=== PATIENT | male | born 1960 | race Hispanic/Latino ===

== ENCOUNTER 2019-06-27 12:06 | Inpatient (IN) | payer SELFPAY ==
[~2019-06-27] VITALS: Ht 154.9 cm; Wt 73.6 kg
[2019-06-27] MEDS ORDERED: CLONIDINE HCL 0.1 MG TAB PO ONE (12:30)
[2019-06-27] MEDS ORDERED: MULTIVITAMINS- 12 INJECTION 10 ML, FOLIC ACID MDV 5 MG, THIAMINE HCL INJ 100 MG in SODI... IV ONE (12:30)
[2019-06-27] MEDS ORDERED: LORAZEPAM INJ 2 MG/ML VIAL IV ONE (12:30)
[2019-06-27 12:31] LABS: BASOPHILS # (AUTO) 0.1 (0.0-0.1); BASOPHILS % 0.7 % (0.0-1.0); EOSINOPHILS # (AUTO) 0.1 (0.0-0.4); EOSINOPHILS % 1.3 % (0.0-6.0); HEMATOCRIT 44.4 % (38.2-49.6); HEMOGLOBIN 15.4 g/dL (14.0-18.0); LYMPHOCYTES # (AUTO) 2.8 (1.0-3.2); LYMPHOCYTES % 28.2 % (18.0-39.1); MEAN CORPUSCULAR HEMOGLOBIN 33.4 pg (28-32); MEAN CORPUSCULAR HGB CONC 34.7 g/dL (31-35); MEAN CORPUSCULAR VOLUME 96.3 fL (81-99); MONOCYTES % 10.5 % (4.4-11.3); NEUTROPHILS # (AUTO) 5.8 (2.1-6.9); PLATELET COUNT 240 x10e3/uL (140-360); RED BLOOD COUNT 4.61 x10e6/uL (4.3-5.7); RED CELL DISTRIBUTION WIDTH 12.5 % (11.7-14.4)
[2019-06-27 12:47] LABS: INR 0.89; PROTHROMBIN TIME 12.5 seconds (11.9-14.5)
[2019-06-27 12:48] LABS: PARTIAL THROMBOPLASTIN TIME 31.3 seconds (23.8-35.5)
[2019-06-27 12:51] LABS: CLARITY,URINE HAZY (CLEAR); COLOR,URINE YELLOW (YELLOW)
[2019-06-27 12:52] LABS: BILIRUBIN,URINE NEGATIVE (NEGATIVE); KETONES,URINE NEGATIVE (NEGATIVE); LEUKOCYTE ESTERASE ,URINE SMALL (NEGATIVE); NITRITE,URINE NEGATIVE (NEGATIVE); PROTEIN,URINE DIPSTICK NEGATIVE (NEGATIVE); URINE UROBILINOGEN 0.2 mg/dL (0.2 - 1)
[2019-06-27 12:54] LABS: ALANINE AMINOTRANSFERASE 67 IU/L (0-55); ALBUMIN/GLOBULIN RATIO 0.9 (0.8-2.0); ALKALINE PHOSPHATASE 105 IU/L (40-150); ANION GAP 14.1 mmol/L (8-16); BLOOD UREA NITROGEN 8 mg/dL (7-26); BUN/CREATININE RATIO 11 (6-25); CALCIUM 9.5 mg/dL (8.4-10.2); CARBON DIOXIDE 26 mmol/L (22-29); CHLORIDE 96 mmol/L (98-107); CREATINE KINASE 76 IU/L (30-200); CREATININE, SERUM 0.76 mg/dL (0.72-1.25); EST GLOMERULAR FILTRATION RATE > 60 ML/MIN (60-); GLUCOSE 110 mg/dL (74-118); MAGNESIUM 2.2 MG/DL (1.3-2.1); POTASSIUM 5.1 mmol/L (3.5-5.1); SODIUM 131 mmol/L (136-145)
[2019-06-27 13:13] LABS: THYROID STIMULATING HORMONE 1.422 uIU/mL (0.350-4.940)
[2019-06-27 13:14] LABS: EPITHELIAL CELLS,URINE FEW /LPF
--- NOTE | 2019-06-27 13:28 | Diagnostic Imaging Report ---
Chest, single frontal view line History: CVA Comparison: No comparisons available for review IMPRESSION: The cardiomediastinal silhouette and pulmonary vasculature are within normal limits. The lungs are clear without evidence of consolidation or effusion. There are no acute osseous abnormalities. Signed by: Schuyler Beltrán MD on 06/27/2019 1:25 PM
--- NOTE | 2019-06-27 13:45 | Diagnostic Imaging Report ---
EXAMINATION: Head CT HISTORY: Left peripheral vision loss for the last 2 days, hypertension COMPARISON: None. TECHNIQUE: Multidetector axial images were obtained without contrast from the foramen magnum to the vertex . The images were reconstructed using brain and bone algorithms. Thin section brain images were reformatted into coronal and sagittal planes. Image quality: Motion/streaking artifact limits the evaluation of the skull base and posterior cranial fossa. Dose modulation, iterative reconstruction, and/or weight based adjustment of the mA/kV was utilized to reduce the radiation dose to as low as reasonably achievable. FINDINGS: Parenchyma: 1. Hypodensity in the right medial occipital lobe (lingual gyrus) involving mostly the white matter, with minimal local mass effect and sulci effacement, no definite midline shift or hemorrhagic component. This may represent an acute infarction along the right FORGING DIE SINKER distribution, however given the predominantly white matter involvement an underlying lesion cannot be excluded. 2. No mass or hemorrhage. No CT evidence of acute territorial vascular insult. Extra-axial spaces:No abnormal density. No extra-axial fluid collections Brain volume: Normal for age. Ventricles: No hydrocephalus or displacement. Arteries: No density suggestive of thrombus. Dural sinuses: No abnormal density. Extra-axial spaces: No abnormal density. Foramen magnum: No mass, Chiari malformation, or basilar invagination. Sella: No obvious mass. Paranasal/mastoid sinuses: Imaged portions unremarkable. Skull/Scalp: No lytic or blastic lesions. No fractures. IMPRESSION: Right occipital hypodensity may correspond to an acute infarct, a brain MRI without and with contrast is recommended to further evaluate. The findings were discussed with the ER physician Dr. Barr on 06/27/2019 at 1:40 PM Signed by: Dr. Noy Layton M.D. on 06/27/2019 1:42 PM
[2019-06-27 14:04] LABS: AMPHETAMINES SCREEN,URINE NEGATIVE (NEGATIVE); BENZODIAZEPINES SCREEN,URINE NEGATIVE (NEGATIVE); PHENCYCLIDINE SCREEN,URINE NEGATIVE (NEGATIVE)
[2019-06-27] MEDS ORDERED: GADOBENATE DIMEGLUMINE 1 ML IV ONE (14:04)
--- NOTE | 2019-06-27 16:19 | Diagnostic Imaging Report ---
MRI BRAIN WOW HISTORY: Vision loss, left visual field defect COMPARISON: MRI of the brain 06/27/2019 TECHNIQUE: Multiplanar, multisequence MRI of the brain (including diffusion-weighted imaging) was performed before and after the administration of intravenous, gadolinium based contrast. Motion artifacts obscure some details. DISCUSSION: Scalp/bone marrow: Unremarkable. Brain sulci: Mildly prominent. Ventricles: Mild compensatory dilatation. Extra-axial spaces: No masses or fluid collections. Parenchyma: Focal juxtacortical diffusion restriction along the right medial occipital lobe (right calcarine sulcus, right posterior cerebral artery territory) is compatible with acute ischemia. There is no evidence for hemorrhagic conversion. Mild periventricular white matter hypodensities are likely chronic microvascular ischemic changes. Otherwise, no mass, hemorrhage, or other acute vascular insults. No abnormal parenchymal, leptomeningeal, or dural enhancement is seen. Vessels: Normal flow voids in major arteries and veins. Sellar/Suprasellar region: No abnormalities. Craniocervical junction: No abnormalities. Incidental findings: None. IMPRESSION: 1. Focal acute ischemia in the right medial occipital lobe (right calcarine sulcus, right posterior cerebral artery territory). No evidence for hemorrhagic conversion. There is minimal local mass effect. 2. Mild supratentorial chronic microvascular ischemic change. 3. Mild generalized cerebral volume loss. Signed by: Dr. Giovanny Walker M.D. on 06/27/2019 4:16 PM
[2019-06-27] MEDS ORDERED: ASPIRIN 325 MG TAB EC PO ONE (16:30)
[2019-06-27] MEDS ORDERED: ONDANSETRON HCL INJ 2MG/ML 2ML 2 MG/ML VIAL IV PRN (16:30)
[2019-06-27] MEDS ORDERED: SODIUM CHLORIDE 0.9% 1000ML 1,000 ML IV ONE (16:30)
[2019-06-27] MEDS ORDERED: HYDRALAZINE HCL 20 MG/ML VIAL IV PRN (16:45)
--- NOTE | 2019-06-27 16:53 | NUR ---
RECEIVED REPORT FROM [facility] IN THE STANDING ER. AWAITING FOR PT TO ARRIVE TO FLOOR AT THIS TIME
--- OUTSIDE RECORDS SUMMARY | 2019-06-27 16:58 | XMS REPORT ---
Author Author [facility] Address Unknown Phone Unavailable Care Team Providers Care Chili Pepper Grinder Name Role Phone Opal VARNER Unavailable Unavailable Problems This patient has no known problems. Allergies, Adverse Reactions, Alerts This patient has no known allergies or adverse reactions. Medications This patient has no known medications. Results Test Description Test Time Test Comments Text Results Atomic Results Result Comments MRI BRAIN WOW 2019-06-27 16:10:00 [place] [address] Patient Name: SAE MENDOZA MR #: [id number] : 1960 Age/Sex: 58/M Req #: [id number] Adm Physician: Ordered by: LINDA MCKINNON MD Report #: [id number] Location: ER Room/Bed: Procedure: [id number] MRI/MRI BRAIN WOW Exam Date: Exam Time: REPORT STATUS: Signed MRI BRAIN WOW HISTORY: Vision loss, left visual field defect COMP DANAY: MRI of the brain 06/27/2019 TECHNIQUE: Multiplanar, multisequence MRI of the brain (including diffusion-weighted imaging) was performed before and after the administration of intravenous, gadolinium based contrast. Motion artifacts obscure some details. DISCUSSION: Scalp/bone marrow: Unremarkable. Brain sulci: Mildly prominent. Ventricles: Mild compensatory dilatation. Extra-axial spaces: No masses or fluid collections. Parenchyma: Focal juxtacortical diffusion restriction along the right medial occipital lobe (right calcarine sulcus, right posterior cerebral artery territory) is compatible with acute ischemia. There is no evidence for hemorrhagic conversion. Mild periventricular white matter hypodensities are likely chronic microvascular ischemic changes. Otherwise, no mass, hemorrhage, or other acute vascular insults. No abnormal parenchymal, leptomeningeal, or dural enhancement is seen. Vessels: Normal flow voids in major arteries and veins. Sellar/Suprasellar region: No abnormalities. Craniocervical junction: No abnormalities. Incidental findings: None. IMPRESSION: 1. Focal acute ischemia in the right medial occipital lobe (right calcarine sulcus, right posterior cerebral artery territory). No evidence for hemorrhagic conversion. There is minimal local mass effect. 2. Mild supratentorial chronic microvascular ischemic change. 3. Mild generalized cerebral volume loss. Signed by: Dr. Giovanny Walker M.D. on 06/27/2019 4:16 PM Dictated By: GIOVANNY WALKER MD 15 Transcribed By: PILO on 06/27/19 1616 COPY TO: LINDA MCKINNON MD CT BRAIN WO 2019-06-27 13:38:00 [place] [address] Patient Name: SAE MENDOZA JR MR #: [id number] : 1960 Age/Sex: 58/M Req #: [id number] Adm Physician: Ordered by: LINDA MCKINNON MD Report #: [id number] Location: ER Room/Bed: Procedure: [id number] CT/CT BRAIN WO Exam Date: 06/27/19 Exam Time: 1304 REPORT STATUS: Signed EXAMINATION: Head CT HISTORY: Left peripheral vision loss for the last 2 days, hypertension COMPARISON: None. TECHNIQUE: Multidetector axial images were obtained without contrast from the foramen magnum to the vertex . The images were reconstructed using brain and bone algorithms. Thin section brain images were reformatted into coronal and sagittal planes. Image quality: Motion/streaking artifact limits the evaluation of the skull base and posterior cranial fossa. Dose modulation, iterative reconstruction, and/or weight based adjustment of the mA/kV was utilized to reduce the radiation dose to as low as reasonably achievable. FINDINGS: Parenchyma: 1. Hypodensity in the right medial occipital lobe (lingual gyrus) involving mostly the white matter, with minimal local mass effect and sulci effacement, no definite midline shift or hemorrhagic component. This may represent an acute infarction along the right HIGH RISK CASE MANAGER distribution, however given the predominantly white matter involvement an underlying lesion cannot be excluded. 2. No mass or hemorrhage. No CT evidence of acute territorial vascular insult. Extra-axial spaces:No abnormal density. No extra-axial fluid collections Brain vo lume: Normal for age. Ventricles: No hydrocephalus or displacement. Arteries: No density suggestive of thrombus. Dural sinuses: No abnormal density. Extra-axial spaces: No abnormal density. Foramen magnum: No mass, Chiari malformation, or basilar invagination. Sella: No obvious mass. Paranasal/mastoid sinuses: Imaged portions unremarkable. Skull/Scalp: No lytic or blastic lesions. No fractures. IMPRESSION: Right occipital hypodensity may correspond to an acute infarct, a brain MRI without and with contrast is recommended to further evaluate. The findings were discussed with the ER physician Dr. Mckinnon on 06/27/2019 at 1:40 PM Signed by: Dr. Cristopher Layton M.D. on 06/27/2019 1:42 PM Dictated By: CRISTOPHER LAYTON MD 1342 Transcribed By: PILO on 06/27/19 1342 COPY TO: LINDA MCKINNON MD CHEST SINGLE (NOT PORTABLE) 2019-06-27 13:25:00 [place] [address] Patient Name: SAE MENDOZA JR MR #: [id number] : 1960 Age/Sex: 58/M Req #: [id number] [facility] Physician: Ordered by: LINDA MCKINNON MD Report #: [id number] Location: ER Room/Bed: Procedure: [id number] DX/CHEST SINGLE (NOT PORTABLE) Exam Date: Exam Time: REPORT STATUS: Signed Chest, single frontal view line History: CVA Comparison : No comparisons available for review IMPRESSION: The cardiomediastinal silhouette and pulmonary vasculature are within normal limits. The lungs are clear without evidence of consolidation or effusion. There are no acute osseous abnormalities. Signed by: Schuyler Rolle MD on 06/27/2019 1:25 PM Dictated By: SCHUYLER ROLLE MD 1327 Transcribed By: PILO on 06/27/191324 COPY TO: LINDA MCKINNON MD
[2019-06-27 17:17] VITALS: BP 191/124
--- NOTE | 2019-06-27 17:17 | NUR ---
RECEIVED PT TO FLOOR [id number] FAMILY IS AT BEDSIDE PT DENIES ANY PAIN STATES NO WEAKNESS TO EXTREMITIES, PT ABLE TO BOBCAT DRIVER/LABOR BOTH ARMS/LEGS AND HOLD IN AIR WITHOUT DIFFICULTY PT REPORTS PERIPHERAL BLINDNESS TO THE LEFT EYE THAT STATES HAS IMPROVED FROM YESTERDAY PT SPEECH IS CLEAR IV TO THE LEFT AC 20 WITH BANANA BAG AND RIGHT FA 20 WITH NS , BOTH SITES ARE CLEAN AND DRY BP UPON ARRIVAL TO FLOOR READS HIGH AT 191/124, PRN HYDRALAZINE WILL BE GIVEN FOR THIS WILL CONTINUE TO MONITOR PT CLOSELY SIDE RAILSX2, BED WHEELS LOCKED, CALL LIGHT IS WITHIN EASY REACH INSTRUCTED TO CALL FOR ASSISTANCE IF NEEDED
[2019-06-27 17:43] VITALS: BP 191/124
[2019-06-27 18:02] VITALS: BP 191/124
[2019-06-27] MEDS: CHLORDIAZEPOXIDE HCL 25 MG CAP PO SCH (18:10)
[2019-06-27 18:39] VITALS: BP 155/90
--- NOTE | 2019-06-27 18:41 | NUR ---
BP NOW 155/90 WITH HR OF 114
--- NOTE | 2019-06-27 20:10 | NUR ---
spoke with dr fried to clarify medication orders. banana bag to be scheduled @ 100ml/hr. notified pharm.
[2019-06-27] MEDS ORDERED: MULTIVITAMINS- 12 INJECTION 10 ML, FOLIC ACID MDV 5 MG, THIAMINE HCL INJ 100 MG in SODI... IV SCH (20:30)
[2019-06-27 21:16] LABS: CREATINE KINASE MB 0.8 ng/mL (0-5.0)
[2019-06-27 21:25] VITALS: BP 137/90
--- NOTE | 2019-06-27 21:42 | NUR ---
right FA iv infiltrated, removed with cath tip intact. new iv 20g to right upper arm, patient tolerated well.
[2019-06-28] VITALS (8 sets, daily range): BP systolic 132–171; BP diastolic 79–104
[2019-06-28] MEDS: CHLORDIAZEPOXIDE HCL 25 MG CAP PO SCH ×4 (00:03→17:16)
[2019-06-28] MEDS: MULTIVITAMINS- 12 INJECTION 10 ML, FOLIC ACID MDV 5 MG, THIAMINE HCL INJ 100 MG in SODI... IV SCH ×3 (00:03→19:16)
--- NOTE | 2019-06-28 03:03 | Consultation ---
DATE OF CONSULTATION: 06/27/2019 Neurology Consult Note HISTORY OF PRESENT ILLNESS: Mr. Moura is a 58-year-old left-hand dominant man with past medical history significant for hypertension (untreated) and tobacco use, admitted to [facility] on June 27, 2019, with left homonymous hemianopsia secondary to an ischemic stroke in the right medial occipital lobe. Two days prior to admission, at approximately 1400, the patient experienced the sudden onset of a left homonymous hemianopsia. Mr. Moura does not report dysarthria, aphasia, facial droop, hemiparesis, hemihypesthesia, poor balance, impairment of gait, dizziness, confusion, or headache associated with the above symptom. On the day following symptom onset, when the patient's visual field defect had not resolved, he told his employer he would need to take a day off from work to "see a doctor about my eyes." On the day of admission, Mr. Moura was seen at [facility]. In the office, his blood pressure was noted to be "very high." Mr. Moura was noted to have bleeding behind both eyes. No comment was made on a visual field cut, possible stroke, etc. Mr. Moura was told to proceed to the emergency center at [facility] for further evaluation and treatment of his symptoms. Upon arrival in the emergency center, the patient was afebrile with a blood pressure of 233/122 mmHg and a pulse of 111 beats per minute. His neurological examination was documented as being nonfocal. A CT of the brain without contrast was performed while the patient was in the emergency center. This study revealed hypodensity in the right occipital lobe suspicious for an acute ischemic stroke. Further evaluation of an MRI of the brain without contrast was recommended. Mr. Moura was subsequently admitted to [facility] as an inpatient for further evaluation and treatment of his symptoms. Mr. Moura has not experienced similar symptoms previously. The patient does not take an antiplatelet or anticoagulant medication on a routine basis. REVIEW OF SYSTEMS: Loss of vision (left homonymous hemianopsia). Otherwise, a 12-point review of systems is negative. PAST MEDICAL HISTORY: Hypertension. Mr. Moura has not seen a primary care physician in many years. His hypertension is untreated. PAST SURGICAL HISTORY: Umbilical hernia repair, left knee reconstruction/reconstruction of left femur with nishant placement, surgical repair of an anal fistula. PAST HOSPITALIZATIONS: Surgeries/procedures as listed. FAMILY MEDICAL HISTORY: Mr. Moura's parents are . His father had hypertension and prostate cancer. His mother had hypertension, congestive heart failure, and from a stroke. Mr. Moura has no siblings. He has three children, two sons and one daughter, all of whom are alive and healthy. SOCIAL HISTORY: Mr. Moura is . He works in manufacturing. The patient reports smoking 1-2 cigarettes per day and has done so for several years. The patient does have a prior history of heavy tobacco use. Mr. Moura reports drinking eight 16-ounce beers per night. He does consume more alcohol in the weekends. The patient smokes marijuana daily. HOME MEDICATIONS: None. HOSPITAL MEDICATIONS: Aspirin, chlordiazepoxide, hydralazine, banana bag, and Zofran. ALLERGIES: NO KNOWN DRUG ALLERGIES. NO KNOWN FOOD ALLERGIES. NO KNOWN ALLERGIES TO LATEX. NO KNOWN ALLERGIES TO IODINE OR OTHER CONTRAST MATERIALS. PHYSICAL EXAMINATION: VITAL SIGNS: Height 61 inches, weight 162 pounds, BMI 30.6 kg/m2, blood pressure 155/90 mmHg, pulse 96 beats per minute, respiratory rate 18 breaths per minute, and oxygen saturation 97% on room air. GENERAL: The patient is awake and alert, does not appear distressed. Obese. HEENT: Normocephalic, atraumatic. Pupils are equal, round, and reactive to light. Moist mucous membranes. NECK: Supple. No appreciable thyromegaly. No appreciable carotid bruits. CARDIOVASCULAR: S1, S2. Regular rate and rhythm. No murmurs, rubs, or gallops. RESPIRATORY: Clear to auscultation bilaterally. No wheezes, rhonchi, or rales. EXTREMITIES: The skin is warm and dry. No clubbing, cyanosis, or edema. The posterior tibial and dorsalis pedis pulses are 2+ and symmetric. SKIN: No rashes or lesions. NEUROLOGIC: Memory/Attention: The patient is awake and alert, oriented to person, place, time, and situation. Cranial Nerves: Cranial nerve I - not tested. Cranial nerve II, III, IV, and - pupils are equal and round, react briskly to light (from 4 mm to 2 mm). The left homonymous hemianopsia is appreciated. Extraocular movements are intact. No nystagmus. Cranial nerve V - sensation to light touch and pinprick is intact in the bilateral V1 through V3 distributions. Strength in the temporalis and masseter muscles is within normal limits. Cranial nerve VII - the face is symmetric as are all facial movements. Strength is within normal limits. Cranial nerve VIII - hearing is intact to finger rub bilaterally. Cranial nerve IX, X - the soft palate elevates equally and symmetrically. Cranial nerve XI - normal strength of the bilateral sternocleidomastoid and trapezius muscles. Cranial nerve XII - the tongue protrudes midline and moves symmetrically from dlcp-ib-[id number]. Strength: Bulk is normal. Strength is 5/5 in the bilateral deltoids, biceps, triceps, wrist flexors and extensors, finger flexors and extensors, intrinsic hand muscles, hip flexors, knee flexors and extensors, ankle dorsiflexion and plantar flexion, and intrinsic foot muscles. Tone is normal. DTRs: Deep tendon reflexes are 2+ and symmetric at the triceps, biceps, and brachioradialis. Deep tendon reflexes are 1+ and symmetric at the patellas and Achilles. Plantar responses are flexor bilaterally. Sensation: Sensation is intact to light touch and pinprick in both arms and both legs. Cerebellar: Bswjkb-vxcd-fqogca and heel-herrmann movements are intact without dysmetria or other impairment. Gait: Deferred. Speech: Spontaneous speech is normal without appreciable dysarthria or aphasia. Repetition is intact. Involuntary movements: None. Pronator Drift: None. LABORATORY DATA: A comprehensive metabolic panel is significant for sodium of 131, chloride of 96, AST of 107, ALT of 67, total protein of 8.7, and globulin of 4.7. A magnesium level is mildly elevated at 2.2. Cardiac enzymes are negative x1. TSH 1.422. The CBC with differential and platelets is unremarkable. PT 12.5, INR 0.89, PTT 31.3. A urinalysis reveals hazy urine with 1+ glucose, trace blood, 6-10 red blood cells, 6-10 white blood cells, no bacteria with few epithelial cells. A urine drug screen was positive for cannabinoids. Ethyl alcohol level less than 10.0. DIAGNOSTIC STUDIES: Electrocardiogram on 06/27/2019: Normal sinus rhythm at 89 beats per minute with sinus arrhythmia. Chest x-ray on 06/27/2019: The cardiomediastinal silhouette and pulmonary vasculature within normal limits. The lungs are clear without evidence of consolidation or effusion. There are no acute osseous abnormalities. CT of the brain without contrast 06/27/2019: On my review, there is hypodensity in the right medial occipital lobe compatible with an acute ischemic stroke. Cerebral volumes are appropriate for age. There are findings compatible with [id number]-[id number] chronic small-vessel ischemic disease. MRI of the brain without contrast on 06/27/2019: An acute ischemic stroke is seen in the right medial occipital lobe. Cerebral volumes are appropriate for age. There are scattered T2/FLAIR hyperintense foci throughout the supratentorial white matter compatible with mild chronic small vessel ischemic disease. ASSESSMENT AND PLAN: Mr. Moura is a 58-year-old man with past medical history significant for hypertension (not treated) and tobacco use, admitted to [facility] with left homonymous hemianopsia secondary to an ischemic stroke in the right medial occipital lobe. Other than the left homonymous hemianopsia, the patient's neurological examination is nonfocal. His laboratory data and other diagnostic studies have been reviewed and are documented above. Mr. Moura will undergo a complete stroke evaluation as follows: 1. A lipid panel and hemoglobin A1c will be ordered. 2. An echocardiogram will be ordered. 3. A bilateral carotid artery ultrasound with Doppler will be ordered. 4. Aspirin 81 mg by mouth daily for stroke prophylaxis will be prescribed. 5. Mr. Moura is more than 48 hours status post stroke. His blood pressure may be gradually normalized. Goal blood pressure is less than 140/90 mmHg. Treatment with Norvasc 10 mg by mouth daily will be prescribed. Monitor vital signs per unit protocol and add/adjust medications as appropriate. 6. The patient's goal total cholesterol is less than 200 with an LDL of less than 70. Follow up the results of the lipid panel. 7. The patient's goal hemoglobin A1c is less than 7.0. Follow up the results of the hemoglobin A1c. Tight glycemic control is recommended while the patient is hospitalized. 8. Speech and Physical Therapy consultations will be deferred as the patient has no deficits other than a left homonymous hemianopsia. 9. GI prophylaxis with Pepcid 20 mg by mouth twice daily with meals. DVT prophylaxis with Lovenox 40 mg subcutaneously daily. 10. Smoking cessation counseling was provided to the patient. 11. For alcohol abuse/withdrawal - continue a banana bag at 125 mL/h. Continue treatment with chlordiazepoxide 25 mg by mouth every 6 hours. 12. Defer treatment of the remaining medical comorbidities to the primary and other services following the patient. Thank you for this consultation. I will continue to follow the patient while he remains in the hospital. TIME SPENT: 50 minutes. Norma Hermosillo MD CP/MODL /[id number] MTDD
[2019-06-28] MEDS: HYDRALAZINE HCL 20 MG/ML VIAL IV PRN (03:56)
[2019-06-28 06:20] LABS: BASOPHILS # (AUTO) 0.1 (0.0-0.1); BASOPHILS % 0.8 % (0.0-1.0); EOSINOPHILS # (AUTO) 0.2 (0.0-0.4); HEMATOCRIT 40.6 % (38.2-49.6); HEMOGLOBIN 14.1 g/dL (14.0-18.0); MEAN CORPUSCULAR HEMOGLOBIN 33.1 pg (28-32); MEAN CORPUSCULAR HGB CONC 34.7 g/dL (31-35); MEAN CORPUSCULAR VOLUME 95.3 fL (81-99); MONOCYTES # (AUTO) 0.8 (0.2-0.8); MONOCYTES % 11.8 % (4.4-11.3); NEUTROPHILS # (AUTO) 3.6 (2.1-6.9); NEUTROPHILS % 54.2 % (38.7-80.0); PLATELET COUNT 242 x10e3/uL (140-360); RED BLOOD COUNT 4.26 x10e6/uL (4.3-5.7); RED CELL DISTRIBUTION WIDTH 12.4 % (11.7-14.4)
[2019-06-28 06:39] LABS: ALANINE AMINOTRANSFERASE 49 IU/L (0-55); ALBUMIN 3.4 g/dL (3.5-5.0); ALKALINE PHOSPHATASE 86 IU/L (40-150); BLOOD UREA NITROGEN 9 mg/dL (7-26); BUN/CREATININE RATIO 13 (6-25); CARBON DIOXIDE 22 mmol/L (22-29); CHLORIDE 102 mmol/L (98-107); CHOL/HDL RATIO 3.9 (3.9-4.7); CHOLESTEROL 201 MD/DL (0-199); CREATININE, SERUM 0.72 mg/dL (0.72-1.25); EST GLOMERULAR FILTRATION RATE > 60 ML/MIN (60-); GLUCOSE 110 mg/dL (74-118); HDL CHOLESTEROL 52 MG/DL (40-60); LDL CHOLESTEROL 129 MG/DL (60-130); SODIUM 133 mmol/L (136-145); TRIGLYCERIDES 102 MG/DL (0-149)
[2019-06-28 06:59] LABS: CREATINE KINASE MB 0.9 ng/mL (0-5.0)
--- NOTE | 2019-06-28 07:05 | NUR ---
RECEIVED PATIENT RESTING IN BED NO S/S OF DISTRESS. BED LOW, WHEELS LOCKED, SIDE RAILS X2. CALL LIGHT IN REACH WILL CONTINUE TO MONITOR PATIENT.
[2019-06-28 07:08] LABS: ANION GAP 12.7 mmol/L (8-16)
[2019-06-28 07:19] LABS: POTASSIUM 3.7 mmol/L (3.5-5.1)
[2019-06-28] MEDS ORDERED: ONDANSETRON HCL INJ 2MG/ML 2ML 2 MG/ML VIAL IV PRN (08:00)
[2019-06-28] MEDS ORDERED: ACETAMINOPHEN 325 MG TAB PO PRN (08:00)
[2019-06-28] MEDS: AMLODIPINE BESYLATE 10 MG TAB PO SCH (09:16)
[2019-06-28] MEDS: FAMOTIDINE 20 MG TAB PO SCH ×2 (09:16→17:16)
[2019-06-28] MEDS: ASPIRIN 81 MG ENTERIC COATED PO SCH (09:16)
--- NOTE | 2019-06-28 09:55 | NUR ---
PATIENT A/O X3, EVEN RESPIRATIONS ON RA. BOWEL SOUNDS ACTIVE, SKIN INTACT, NO EDEMA. LUNG SOUNDS CLEAR TO AUSCULTATION. TELEMETRY #24 ST. LEFT AC [address] RIGHT UA 20 GAUGE WITH BANANA BAG @ 50 CC/HR. PATIENT AMBULATES INDEPENDENTLY. NO PAIN OR DISCOMFORT AT THIS TIME. CALL LIGHT IN REACH, AT BEDSIDE. WILL CONTINUE TO MONITOR PATIENT.
[2019-06-28 13:48] LABS: CREATINE KINASE MB 0.8 ng/mL (0-5.0)
--- NOTE | 2019-06-28 15:44 | History and Physical ---
CHIEF COMPLAINT: Peripheral vision loss. HISTORY OF PRESENT ILLNESS: This is a 58-year-old male. He reports no past medical history. He is a chronic alcoholic, drinks about a 12-pack a day for more than 10+ years, presents to the emergency room after seeing an behavioral technician with peripheral visual loss. The patient was diagnosed with hemianopsia, hemianopia, and imaging studies consistent with acute CVA. The patient was admitted and Neurology was consulted. The patient reports he has been having his peripheral vision issues for the last 3 days. Of note, he noticed that suddenly on Sunday afternoon. He denies any trauma, headaches, shortness of breath, chest pain or palpitations. The patient has not seen a physician in significant number of years. He did come in. His blood pressure was elevated. The patient is seen and evaluated at bedside on the medical floor. He is currently doing okay with no issues. There are no signs of any withdrawals from his alcohol usage. REVIEW OF SYSTEMS: Pertinent positives: He has peripheral visual loss. Pertinent negatives: Denies any chest pain, palpitation, nausea, vomiting, diarrhea, dysuria, hematuria, frequency, urgency, lightheadedness, dizziness, abdominal pain, headaches, shortness of breath, cough, congestion, fever, or any other complaints. The rest of 14-point review of systems are reviewed with the patient and are negative. ALLERGIES: NO KNOWN DRUG ALLERGIES. HOME MEDICATIONS: None. PAST MEDICAL HISTORY: He reports none. Has not seen a doctor in years. PAST SURGICAL HISTORY: Reports none. FAMILY HISTORY: Hypertension and diabetes. SOCIAL HISTORY: He is a social smoker. He drinks more than 12 cans of beer daily. He denies drugs, but his urine drug screen is positive for cannabinoids. PHYSICAL EXAMINATION: VITAL SIGNS: Temperature is 97.6, pulse is 118, respiratory rate is 20, blood pressure 132/79, pulse ox 96% on room air. GENERAL: In no acute distress. Alert and oriented x3. Cooperative on examination. HEENT: Head is normocephalic, atraumatic. Eyes; pupils are equal, round, and reactive to light bilaterally. He does have some peripheral vision loss. PULMONARY: Clear to auscultation bilaterally. No wheezing, rales, or rhonchi. No crackles appreciated. CARDIOVASCULAR: Positive S1, S2. No murmurs, rubs, or gallops. GI: Abdomen is soft, nondistended, and nontender to palpation. Bowel sounds present. MUSCULOSKELETAL: Strength is 5/5 throughout. No evidence of any muscle deficits on examination. NEUROLOGICAL: I will defer this to Neurology for complete neurological examination. SKIN: Intact. Warm to touch. Good cap refill. PSYCHIATRIC: Normal affect and mood. EXTREMITIES: No edema. Good range of motion throughout. LABORATORY FINDINGS: Show white count of 6.6, hemoglobin of 14, hematocrit of 41, platelets of 242. Coagulation; PT 12, INR 0.89, PTT 31. Chemistry; sodium 133, potassium 3.7, chloride 102, bicarb 22, anion gap of 12, BUN is 9, creatinine is 0.72, glucose is 110. A1c is 5.5, calcium 9. LFTs; total bilirubin was 1.3, AST 50, ALT 49, alkaline phosphatase 86. Troponins were all negative. His LDL was 129. His TSH is 1.4. Urinalysis concerning for UTI. Urine drug screen positive for marijuana. Microbiology, none. IMAGING STUDIES: Chest x-ray shows cardiomediastinal silhouette and pulmonary vascularity are within normal limits. Lungs are clear without evidence of consolidation or effusion. CT of brain shows right occipital hypodensity, may correspond to acute infarct. MRI of the brain showed focal acute ischemia in the right medial occipital lobe. No evidence of hemorrhagic conversion. There is minimal local mass effect. Mild supratentorial chronic microvascular ischemic change. Mild generalized cerebral volume loss. IMPRESSION: 1. Acute cerebrovascular accident on the right occipital lobe per imaging studies. 2. Hemianopsia and hemianopia. 3. Chronic alcohol abuse. 4. Positive urine drug screen for cannabinoids. 5. Hyperlipidemia. 6. Hypertension urgency. PLAN: At this time, the patient has been evaluated by Neurology. A 2D echo and carotid ultrasound are pending. He is currently on aspirin, which we will go ahead and continue. He is also on Lovenox for DVT prophylaxis. As for his underlying blood pressure, we will just only continue with the low dose of amlodipine for now and monitor him closely. I do not want to drop his blood pressure significant in the low. The patient likely lives in a high blood pressure state. He does have p.r.n. hydralazine if needed. Discussed with nursing staff. As for his alcohol abuse, he is on a banana bag. We will continue with that. Add some thiamine as well as multivitamin. We are going to get physical therapy and occupational therapy to work with the patient. He is on Librium for his alcohol abuse in the event he has any withdrawals. We will get a.m. labs as well. Otherwise, we will continue same plan of care and monitor closely. MD CHRISTOS Kline/KAMALA /[id number]
[2019-06-28] MEDS ORDERED: ENOXAPARIN SOD INJ 40 MG/0.4 ML SYR SC SCH (17:00)
--- NOTE | 2019-06-28 19:10 | NUR ---
BED SIDE SHIFT REPORT TAKEN FROM MORNING RN.STABLE CONDITION.FAMILY MEMBER AT BED SIDE.
--- NOTE | 2019-06-28 21:10 | NUR ---
Assessment done.no resp.distress.no pain voiced.iv fluid running.bed locked and in lowest position.phone and call light within reach.instructed to call for assistance as needed.
[2019-06-29] VITALS: BP 155/91
[2019-06-29] MEDS: CHLORDIAZEPOXIDE HCL 25 MG CAP PO SCH ×3 (00:10→12:00)
[2019-06-29 04:00] VITALS: BP 171/107
[2019-06-29 05:46] LABS: BASOPHILS # (AUTO) 0.1 (0.0-0.1); EOSINOPHILS # (AUTO) 0.2 (0.0-0.4); HEMATOCRIT 41.9 % (38.2-49.6); HEMOGLOBIN 13.8 g/dL (14.0-18.0); LYMPHOCYTES % 32.4 % (18.0-39.1); MEAN CORPUSCULAR HEMOGLOBIN 33.1 pg (28-32); MEAN CORPUSCULAR HGB CONC 32.9 g/dL (31-35); MEAN CORPUSCULAR VOLUME 100.5 fL (81-99); MONOCYTES # (AUTO) 0.8 (0.2-0.8); MONOCYTES % 13.2 % (4.4-11.3); NEUTROPHILS # (AUTO) 3.2 (2.1-6.9); NEUTROPHILS % 50.1 % (38.7-80.0); PLATELET COUNT 221 x10e3/uL (140-360); RED BLOOD COUNT 4.17 x10e6/uL (4.3-5.7); RED CELL DISTRIBUTION WIDTH 12.6 % (11.7-14.4)
[2019-06-29] MEDS: MULTIVITAMINS- 12 INJECTION 10 ML, FOLIC ACID MDV 5 MG, THIAMINE HCL INJ 100 MG in SODI... IV SCH (05:52)
[2019-06-29] MEDS: HYDRALAZINE HCL 20 MG/ML VIAL IV PRN (06:01)
[2019-06-29 06:31] LABS: ANION GAP 12.8 mmol/L (8-16); BLOOD UREA NITROGEN 8 mg/dL (7-26); BUN/CREATININE RATIO 12 (6-25); CALCIUM 8.7 mg/dL (8.4-10.2); CARBON DIOXIDE 22 mmol/L (22-29); CHLORIDE 104 mmol/L (98-107); CREATININE, SERUM 0.69 mg/dL (0.72-1.25); EST GLOMERULAR FILTRATION RATE > 60 ML/MIN (60-); GLUCOSE 110 mg/dL (74-118); POTASSIUM 3.8 mmol/L (3.5-5.1); SODIUM 135 mmol/L (136-145)
--- NOTE | 2019-06-29 06:59 | NUR ---
BED SIDE SHIFT REPORT GIVEN TO THE ONCOMING RN.STABLE CONDITION.
--- NOTE | 2019-06-29 07:19 | NUR ---
RECEIVED PATIENT RESTING IN BED NO S/S OF DISTRESS. BED LOW, WHEELS LOCKED, SIDE RAILS X2. CALL LIGHT IN REACH WILL CONTINUE TO MONITOR PATIENT.
[2019-06-29] MEDS: AMLODIPINE BESYLATE 10 MG TAB PO SCH (08:20)
[2019-06-29] MEDS: ASPIRIN 81 MG ENTERIC COATED PO SCH (08:20)
[2019-06-29] MEDS: FAMOTIDINE 20 MG TAB PO SCH (08:20)
[2019-06-29 08:28] VITALS: BP 132/77
[2019-06-29 08:44] VITALS: BP 132/77
[2019-06-29 12:39] VITALS: BP 137/89
[2019-06-29] MEDS ORDERED: ASPIRIN81 MG PO (12:40)
[2019-06-29] MEDS ORDERED: LOSARTAN POTASS25 MG PO (12:41)
[2019-06-29] MEDS ORDERED: NORVASC5 MG PO (12:41)
[2019-06-29] MEDS ORDERED: LIPITOR20 MG PO (12:42)
[2019-06-29] MEDS ORDERED: THIAMINE PO (12:42)
--- NOTE | 2019-06-29 12:46 | NUR ---
SPOKE WITH DR. VARNER. PATIENT CLEARED TO GO HOME FROM NEURO STANDPOINT.
--- NOTE | 2019-06-29 13:15 | NUR ---
REMOVED PATIENTS IV CATHETER TIP INTACT AND PRESSURE DRESSING APPLIED.
--- NOTE | 2019-06-29 13:25 | NUR ---
PATIENT DISCHARGED FROM FACILITY. PATIENT GATHERED ALL PERSONAL BELONGINGS, DISCHARGE INSTRUCTIONS AND FOLLOW UP INFORMATION. LEFT UNIT IN WHEELCHAIR AND WENT HOME VIA PRIVATE AUTO. NO SIGNS OF DISTRESS WHEN LEAVING FACILITY.
--- NOTE | 2019-06-29 15:25 | Discharge Summary ---
FINAL DISCHARGE DIAGNOSES: 1. Left homonymous hemianopsia secondary to acute cerebrovascular accident from right medial occipital lobe. 2. Acute cerebrovascular accident. 3. Chronic alcohol abuse. 4. Uncontrolled hypertension. 5. Hyperlipidemia. 6. Chronic smoker. CONSULTANTS: Neurology. PHYSICAL EXAMINATION: VITAL SIGNS: Temperature is 98.5, pulse is 111, respiratory rate is 20, blood pressure 137/89, and pulse ox 96% on room air. LABORATORY DATA: Labs show white count 6.3, hemoglobin 13.8, hematocrit is 41.9, and platelets of 221. PT 12.5, INR 0.89, and PTT 31. Chemistry; sodium 135, potassium 3.8, chloride 104, bicarb 22, anion gap of 12, BUN is 8, creatinine is 0.69, glucose is 110, and calcium is 8.7. Troponins were all negative. Total bilirubin was 1.3, AST 50, ALT 49, and alkaline phosphatase 86. Albumin 3.4. LDL is 129. TSH is 1.4. Total cholesterol 201. Urinalysis was negative. Urine drug screen positive for cannabinoids. Alcohol level was negative. IMAGING STUDIES: Chest x-ray, the mediastinal silhouette and pulmonary vasculature within normal range. Lungs are clear without evidence of consolidation or effusion. Brain CT showed right occipital hypodensity may correspond to an acute infarct. MRI of the brain shows focal acute ischemia in the right medial occipital lobe. No evidence for hemorrhagic conversion. There is minimal local mass effect. Mild supratentorial chronic microvascular ischemic change. Mild generalized cerebral volume loss. Carotid Doppler showed no evidence of internal carotid stenosis bilaterally. Of note, the right internal carotid and the left internal carotid shows [id number] 16% to 49% stenosis. HOSPITAL COURSE: This is a 58-year-old male, who is a chronic alcoholic and chronic smoker, who saw an pulp mill operator, Dr. Root and at that time was complaining of blurry vision and loss of visual field loss, was diagnosed by Dr. Root, Ophthalmology that the patient had a left homonymous hemianopsia and was told to come to the ER for further evaluation and management for underlying acute stroke. On arrival, the patient was admitted and Neurology was consulted. CT brain was concerning for underlying acute CVA, in which an MRI of the brain was performed that showed a focal acute ischemia in the right medial occipital lobe. There is no evidence of any hemorrhagic conversion. Carotid Doppler was found to be negative. A 2D echo showed an EF of 55%. The patient was evaluated by Neurology as well, started on aspirin and statin. The patient worked with physical therapy and occupational therapy. He was tolerating diet well, regular diet with no issues. He was started on a banana bag for a history of alcohol abuse as well. The patient was then cleared for discharge by Neurology. The patient will be discharged on Lipitor 80 mg at bedtime and baby aspirin with close followup with the neurologist in 1 to 2 weeks' time. He was also advised to follow up with the PCP, which we provided him with Dr. Lisa as a primary care physician to follow up with. In relation to his blood pressure, he came in with an elevated blood pressure reading, systolically greater than 200s, which he was started on amlodipine at 10 mg daily. His blood pressure is elevated at nighttime, in which we added a low-dose losartan 25 mg at bedtime as well. He was also discharged on oral thiamine. He was also educated in terms of smoking and alcohol cessation. The patient reports that he will not quit smoking or drinking. At this time, the patient was cleared for discharge by Neurology. The patient is back to normal baseline with no other issues. He was advised to follow up with the neurologist in 1 to 2 weeks and pulp mill operator in 1 to 2 weeks' time as well. On the day of discharge, vital signs were stable, labs reviewed and stable. The patient is seen and evaluated, and examined thoroughly on the day of discharge. No other complaints. The patient verbalized understanding and agreed to plan of care to follow up accordingly as an outpatient with the primary care physician in 1 week, pulp mill operator in 2 weeks' time, Neurology in 1 to 2 weeks, and primary care doctor in 1 to 2 weeks' time. Smoking and alcohol cessation was given to the patient and educated thoroughly at bedside. MEDICATIONS: See med reconciliation form. DISPOSITION: To home. CONDITION: Stable. DIET: Heart healthy. In the event of any worsening symptoms, the patient was advised to come back to the ED for further evaluation. Discharge summary took greater than 35 minutes. Once again, the patient verbalized understanding and agrees to plan of care with his present at bedside as well as the nursing staff and he had no other questions for me to answer for him and he was cleared for discharge. MD CHRISTOS Kline/KAMALA /[id number]
== END 2019-06-29 13:25 | disposition home or self-care (01) | DRG 65 ==
LOC: ER 12:06 → ERHOLD 16:21 → MED/SURG 17:17
PROVIDERS: ADMIT Internal Medicine; ATTEND Internal Medicine
DX: I63.331 Cerebral infarction due to thrombosis of right posterior cerebral artery (principal); F10.230 Alcohol dependence with withdrawal, uncomplicated; H53.462 Homonymous bilateral field defects, left side; I10 Essential (primary) hypertension; Z82.49 Family history of ischemic heart disease and other diseases of the circulatory system; E78.5 Hyperlipidemia, unspecified; I16.0 Hypertensive urgency; F17.210 Nicotine dependence, cigarettes, uncomplicated; Y90.0 Blood alcohol level of less than 20 mg/100 ml
CPT/HCPCS: 36415; 70450; 70553; 71045; 80048; 80053; 80061; 80307; 80320; 81001; 82550; 82553; 83036; 83735; 84443; 84484; 85025; 85610; 85730; 93005; 93306; 93880; 99284; J0360; J1650; J2060; J3411; J7030